=== PATIENT | female | born 1965 | race Caucasian/White ===

== ENCOUNTER → 2020-06-28 | Outpatient (CLI) | payer BC ==
[2020-06-28 09:23] LABS: ANION GAP 14.3 mmol/L (8-16); CALCIUM 8.3 mg/dL (8.4-10.2); CREATININE, SERUM 2.16 mg/dL (0.57-1.11); POTASSIUM 4.3 mmol/L (3.5-5.1)
[2020-06-28 12:06] LABS: ANION GAP 11.1 mmol/L (8-16); CALCIUM 8.4 mg/dL (8.4-10.2); CREATININE, SERUM 1.55 mg/dL (0.57-1.11); POTASSIUM 4.1 mmol/L (3.5-5.1)
== END ==
LOC: LAB 08:32
PROVIDERS: ATTEND Otolaryngology
DX: R51.9 Headache, unspecified (principal)
CPT/HCPCS: 36415; 80048

== ENCOUNTER → 2020-06-29 | Outpatient (CLI) | payer BC ==
[2020-06-29 08:51] LABS: ANION GAP 11.5 mmol/L (8-16); BLOOD UREA NITROGEN 7 mg/dL (7-26); BUN/CREATININE RATIO 9 (6-25); CALCIUM 8.9 mg/dL (8.4-10.2); CARBON DIOXIDE 24 mmol/L (22-29); CHLORIDE 105 mmol/L (98-107); CREATININE, SERUM 0.74 mg/dL (0.57-1.11); EST GLOMERULAR FILTRATION RATE > 60 ML/MIN (60-); GLUCOSE 91 mg/dL (74-118); POTASSIUM 4.5 mmol/L (3.5-5.1); SODIUM 136 mmol/L (136-145)
== END ==
LOC: LAB 08:16
PROVIDERS: ATTEND Otolaryngology
DX: E87.1 Hypo-osmolality and hyponatremia (principal)
CPT/HCPCS: 36415; 80048